=== PATIENT | male | born 1985 | race Caucasian/White ===

== ENCOUNTER 2019-12-24 12:33 | Emergency (ER) | payer OTHER ==
[2019-12-24 12:48] VITALS: PULSE 115; TEMP 97.8
--- NOTE | 2019-12-24 13:33 | ED ---
General Adult HPI - General Chief complaint: Back Pain/Injury Stated complaint: [facility] back injury Time Seen by Provider: 12/24/19 12:41 Source: patient, RN notes reviewed Mode of arrival: ambulatory Limitations: no limitations - History of Present Illness Initial comments: 34-year-old male without any significant past medical history presents to the emergency department for a chief complaint of back pain. Patient states that he was cleaning a car at work when he reached across the seat and went to pick sitting up. Patient felt a sudden pain in his back. Patient has had pain in his back for the past 4 days. States that today it is feeling a little bit better and he was able to leave the house. Patient denies any weakness of the lower extremity straight denies numbness or tingling of the lower extremities. Denies bladder or bowel changes. Denies fevers or chills. Patient states that he is here today because work sent him here because he is supposed to go back to work tomorrow and he cannot do so. States he needs a work note. Patient has no other complaints at this time including shortness of breath, chest pain, abdominal pain, nausea or vomiting, headache, or visual changes - Related Data Previous Rx's Medication Instructions Recorded HYDROcodone/APAP 5-325MG [[place] 1 tab PO Q6HR PRN #10 tab 12/24/19 5-325] Ibuprofen [Motrin] 600 mg PO Q8HR PRN #20 tab 12/24/19 Allergies Allergy/AdvReac Type Severity Reaction Status Date / Time No Known Allergies Allergy Verified 12/24/19 13:24 Review of Systems ROS Statement: Those systems with pertinent positive or pertinent negative responses have been documented in the HPI. ROS Other: All systems not noted in ROS Statement are negative. Past Medical History Past Medical History: No Reported History History of Any Multi-Drug Resistant Organisms: None Reported Past Surgical History: No Surgical Hx Reported Past Psychological History: No Psychological Hx Reported Smoking Status: Never smoker Past Alcohol Use History: None Reported Past Drug Use History: None Reported General Exam Limitations: no limitations General appearance: alert, in no apparent distress Head exam: Present: atraumatic, normocephalic, normal inspection Eye exam: Present: normal appearance, PERRL, EOMI. Absent: scleral icterus, conjunctival injection, periorbital swelling ENT exam: Present: normal exam, mucous membranes moist Neck exam: Present: normal inspection, full ROM. Absent: tenderness, meningismus Respiratory exam: Present: normal lung sounds bilaterally. Absent: respiratory distress, wheezes, rales, rhonchi, stridor Cardiovascular Exam: Present: regular rate, normal rhythm, normal heart sounds. Absent: systolic murmur, diastolic murmur, rubs, gallop, clicks GI/Abdominal exam: Present: soft, normal bowel sounds. Absent: distended, tenderness, guarding, rebound, rigid Extremities exam: Present: normal capillary refill (Capillary refill less than 2 seconds in the lower extremities bilaterally, DP pulses are 2+. sensation intact throughout. Stength is 5/5 is BLE.) Back exam: Absent: full ROM (flexion to 30 degrees sustained) Neurological exam: Present: alert Course Vital Signs 12/24/19 12/24/19 12:45 12:48 Temperature 97.8 F Pulse Rate 115 H 115 H Respiratory 18 16 Rate Blood Pressure 146/101 122/83 O2 Sat by Pulse 98 96 Oximetry Medical Decision Making - Medical Decision Making HPI and physical exam as documented. Pain is secondary to injury. Patient does not have any neurologic deficits in the lower extremities. No red flag symptoms. He is here because he is supposed to return to work tomorrow and his note required a work note. At this time patient refused any pain medication stating he does not like shots and just took norco but it was his last pill. States he is not necessarily anything for pain at this time just needs a note for work as well as a referral to orthopedics for MRI. I did discuss that he should follow up with them to have this done outpatient and he is agreeable to this. I discussed return parameters including bladder or bowel changes, numbness or tingling in the lower extremity, weakness of the lower extremities, difficulty ambulate in, or fevers and he is agreeable to this. Disposition Clinical Impression: Mechanical back pain Disposition: HOME SELF-CARE Condition: Good Instructions (If sedation given, give patient instructions): Acute Low Back Pain (ED) Additional Instructions: Please take Motrin for pain. If pain is severe take Dennis. Do not drive or operate machinery while taking this. Follow up with primary care and ortho in 1-2 days. Return to the emergency department for any worsening symptoms. Prescriptions: Ibuprofen [Motrin] 600 mg PO Q8HR PRN #20 tab PRN Reason: Pain HYDROcodone/APAP 5-325MG [[place] 5-325] 1 tab PO Q6HR PRN #10 tab PRN Reason: Pain Is patient prescribed a controlled substance at d/c from ED?: Yes When asked, does pt state using other controlled substances?: No If prescribed controlled substance>3 days was MAPS reviewed?: Prescribed <3 Days If opioid is for acute pain is fill amount 7 days or less?: Yes If Rx opioid, was Start Talking consent form obtained?: Yes Referrals: Emilia Alonso MD [Primary Care Provider] - 1-2 days Ivonne Fish DO [Doctor of Osteopathic Medicine] - 1-2 days Arsalan Fish DO [Doctor of Osteopathic Medicine] - 1-2 days Time of Disposition: 13:30
[2019-12-24 13:36] VITALS: BP 122/83; RESP 16
== END 2019-12-24 13:53 | disposition home or self-care (01) ==
LOC: EC 12:33
DX: M54.9 Dorsalgia, unspecified (principal); Z53.29 Procedure and treatment not carried out because of patient's decision for other reasons
CPT/HCPCS: 99283

== ENCOUNTER → 2019-12-31 | Outpatient (CLI) | payer OTHER ==
--- NOTE | 2019-12-31 15:04 | XR ---
EXAMINATION TYPE: XR lumbar spine 2 or 3V DATE OF EXAM: 12/31/2019 Comparison: None Clinical History: 34-year-old male low back pain, reaching injury, S39.012A, M54.16 Findings: 5 lumbar type vertebral bodies. Vertebral body heights are preserved and alignment is maintained. Mil d facet degenerative change lower lumbar spine. Disc interspaces are relatively maintained. Impression: No vertebral compression collapse or malalignment. Mild facet arthropathy lower lumbar spine.
== END | disposition home or self-care (01) ==
LOC: RADXRMAIN 14:46
PROVIDERS: ATTEND Emergency Medicine
DX: M47.26 Other spondylosis with radiculopathy, lumbar region (principal); S39.012A Strain of muscle, fascia and tendon of lower back, initial encounter
CPT/HCPCS: 72100

== ENCOUNTER 2020-10-02 01:31 | Emergency (ER) | payer OTHER ==
[2020-10-02 01:43] VITALS: BP 135/83; PULSE 80; RESP 20; TEMP 98.6
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
== END 2020-10-02 02:10 | disposition home or self-care (01) ==
LOC: EC 01:31
DX: Z04.1 Encounter for examination and observation following transport accident (principal); V43.52XA Car driver injured in collision with other type car in traffic accident, initial encounter; Y93.89 Activity, other specified; Y92.410 Unspecified street and highway as the place of occurrence of the external cause
CPT/HCPCS: 99283

== ENCOUNTER 2021-01-18 02:05 | Emergency (ER) | payer OTHER ==
[2021-01-18 02:10] VITALS: BP 140/85; PULSE 69; RESP 18; TEMP 97.8
[2021-01-18] MEDS ORDERED: ERYTHROMYCIN 5 MG/GM OPHTH OINT 3.5 GM TUBE LEFT EYE STA (02:29)
--- NOTE | 2021-01-18 02:29 | ED ---
Eye Problem HPI - General Chief complaint: Eye Problems Stated complaint: Eye Injury, [facility] Time Seen by Provider: 01/18/21 02:11 Source: patient Mode of arrival: ambulatory Limitations: no limitations - History of Present Illness Initial comments: 35-year-old male presents to emergency department with a chief complaint of left eye pain. Patient reports he began to have a painful eye, mostly located in the upper eyelid that started earlier today. Patient reports that is progressively getting more painful and more swollen. Denies any pain with extraocular movements. Denies any injuries to the eye. Does not wear contacts. Denies any discharge, visual changes, fevers or chills. - Related Data Previous Rx's Medication Instructions Recorded HYDROcodone/APAP 5-325MG [[place] 1 tab PO Q6HR PRN #10 tab 12/24/19 5-325] Ibuprofen [Motrin] 600 mg PO Q8HR PRN #20 tab 12/24/19 Allergies Allergy/AdvReac Type Severity Reaction Status Date / Time No Known Allergies Allergy Verified 01/18/21 02:10 Review of Systems ROS Statement: Those systems with pertinent positive or pertinent negative responses have been documented in the HPI. ROS Other: All systems not noted in ROS Statement are negative. Past Medical History Past Medical History: No Reported History History of Any Multi-Drug Resistant Organisms: None Reported Past Surgical History: No Surgical Hx Reported Past Psychological History: No Psychological Hx Reported Smoking Status: Never smoker Past Alcohol Use History: None Reported Past Drug Use History: None Reported General Exam Limitations: no limitations General appearance: alert, in no apparent distress Head exam: Present: atraumatic, normocephalic, normal inspection Eye exam: Present: normal appearance, PERRL, EOMI, other Pupils: Present: normal accommodation ENT exam: Present: normal exam, normal oropharynx, mucous membranes moist, TM's normal bilaterally, normal external ear exam Neck exam: Present: normal inspection, full ROM. Absent: tenderness, lymphadenopathy Respiratory exam: Present: normal lung sounds bilaterally. Absent: respiratory distress, wheezes, rales Cardiovascular Exam: Present: regular rate, normal rhythm, normal heart sounds Extremities exam: Present: normal inspection, full ROM, normal capillary refill. Absent: tenderness, pedal edema, joint swelling Back exam: Present: normal inspection, full ROM Neurological exam: Present: alert, oriented X3 Psychiatric exam: Present: normal affect, normal mood Skin exam: Present: warm, dry, intact, normal color Course Vital Signs 01/18/21 02:09 Temperature 97.8 F Pulse Rate 69 Respiratory 18 Rate Blood Pressure 140/85 O2 Sat by Pulse 98 Oximetry Medical Decision Making - Medical Decision Making 35-year-old male presents to emergency department with chief complaint of left eye pain. On physical examination, patient appears to have an internal stye located on the upper, left, lateral eyelid. Advised him to apply warm compresses. Also will discharge him with erythromycin ointment. Advised him to follow-up with an test case developer if necessary. Return parameters were discussed the patient was understanding and agreeable. Case discussed with Disposition Clinical Impression: Internal hordeolum of left eye Disposition: HOME SELF-CARE Condition: Stable Instructions (If sedation given, give patient instructions): Huseyin (ED) Additional Instructions: Apply warm compresses and use prescribed medication as directed. Follow-up with an test case developer. Return to emergency department if symptoms worsen. Is patient prescribed a controlled substance at d/c from ED?: No Referrals: None,Stated [Primary Care Provider] - 1-2 days Tello Lund MD [STAFF PHYSICIAN] - 1-2 days Time of Disposition: 02:29
== END 2021-01-18 03:15 | disposition home or self-care (01) ==
LOC: EC 02:05
DX: H00.014 Hordeolum externum left upper eyelid (principal)
CPT/HCPCS: 99283